=== PATIENT | male | born 1995 | race African-American/Black ===

== ENCOUNTER 2021-04-23 20:17 | Emergency (ER) | payer MEDICAID ==
[~2021-04-23] VITALS: Ht 188 cm; Wt 187.0 kg
[2021-04-23 20:40] VITALS: BP 142/83
[2021-04-23] MEDS ORDERED: BACITRACIN 15GM TUBE TOP ONE (21:00)
[2021-04-23] MEDS ORDERED: ACETAMINOPHEN 325MG TABLET PO ONE (21:00)
[2021-04-23] MEDS ORDERED: ACET-2708 MT (21:10)
== END 2021-04-23 22:22 | disposition home or self-care (01) ==
LOC: ER 20:17
DX: S50.812A Abrasion of left forearm, initial encounter (principal); I10 Essential (primary) hypertension; Z13.9 Encounter for screening, unspecified; V49.9XXA Car occupant (driver) (passenger) injured in unspecified traffic accident, initial encounter; Y93.89 Activity, other specified; Y92.89 Other specified places as the place of occurrence of the external cause; Y99.8 Other external cause status
CPT/HCPCS: 73110; 99283